=== PATIENT | female | born 1940 | race Caucasian/White ===

== ENCOUNTER 2016-12-08 10:07 | Outpatient (CLI) | payer OTHER ==
--- NOTE | 2016-12-08 11:09 | DIAGNOSTIC IMAGING REPORT ---
PROCEDURE: MG BILATERAL SCREENING W/CAD INDICATION: Screening. Family history breast carcinoma (mother). Personal history of colon, uterine, and head neck cancer. TECHNIQUE: Bilateral CC and MLO digital views. COMPARISON: Compared to 12/04/2015, 12/04/2014, and 12/04/2013. FINDINGS: Computer-aided detection applied. Dense parenchymal pattern with a few dystrophic calcifications. No change. IMPRESSION: 1. Negative mammogram. RESULT CODE: 1- Negative. A. A negative report should not delay biopsy if a dominant or clinically suspicious mass is present. 10-15% of cancers are not identified by x-ray. B. A negative report may reinforce clinical impression. C. Adenosis and dense breasts may obscure an underlying neoplasm. D. False positive reports average 6-10%. E.. A yearly screening mammogram is recommended. A reminder letter will be scheduled.
[2017-01-22] MEDS ORDERED: ALENDRONATE SOD70 MG PO (16:46)
[2017-01-22] MEDS ORDERED: ASPIRIN ADULT L81 M1 PO (16:47)
[2017-01-22] MEDS ORDERED: ATORVASTATIN CA10 MG PO (16:47)
[2017-01-22] MEDS ORDERED: CALCIUM 600 PO (16:48)
[2017-01-22] MEDS ORDERED: MAGNESIUM GLUC250 MG PO (16:48)
== END 2016-12-08 23:00 ==
LOC: MAM SRH 10:07
DX: Z12.31 Encounter for screening mammogram for malignant neoplasm of breast (principal)

== ENCOUNTER 2017-01-28 07:59 | Day surgery (SDC) | payer OTHER ==
[~2017-01-28 07:59] MED LIST: ALENDRONATE SOD70 MG PO; ASPIRIN ADULT L81 M1 PO; ATORVASTATIN CA10 MG PO; CALCIUM 600 PO; MAGNESIUM GLUC250 MG PO
--- NOTE | 2017-01-28 11:08 | Provider's Discharge Care Plan ---
Problem, Goal, Plan Problem List 1. Colon polyps
--- NOTE | 2017-01-28 11:08 | Provider's Discharge Care Plan ---
Problem, Goal, Plan Problem List 1. Colon polyps
--- NOTE | 2017-01-28 11:35 | OPERATIVE REPORT ---
DATE OF SURGERY: 01/28/2017 SURGEON: Jimenez Wills MD PREOPERATIVE DIAGNOSES: 1. History of colon polyps. 2. History of rectal carcinoma POSTOPERATIVE DIAGNOSES: 1. Colon polyps 2. Diverticulosis PROCEDURE PERFORMED: 1. Colonoscopy with snare polypectomy ANESTHESIA: Total IV general. INDICATIONS: The patient is a 76-year-old woman with previous rectal cancer and abdominoperineal resection in the year 1999. She has had numerous polyps over the years. SURGICAL TECHNIQUE: The patient was taken to the endoscopy suite, where total IV general was administered and the patient was left in the supine position. The colonoscope was introduced through the tip of her stoma bag and maneuvered down the colostomy site in the left side of the abdomen. The patient had a moderately tortuous colon. There were several diverticula seen just in the most distal part of her remaining colon. The hepatic flexure was approached, and there was a sessile polyp with a large mucus cap measuring about 8 mm in diameter. This was encircled with a cautery snare tangentially and pulled up off the muscularis. Short pulses of current were used to detach it, and the tissue was recovered through the suction channel. The cecum was reached, and on withdrawal, the entire colon was again inspected. There was another 3 mm polyp found on the downside of a fold more proximally, probably mid transverse colon. This could not be easily pulled up with the snare. Therefore, the tip of the snare was used to fulgurate it directly. The patient left in good condition and no intraoperative complications were encountered.
[2017-01-28 12:10] VITALS: BP 136/73
== END 2017-01-28 12:32 | disposition home or self-care (01) ==
LOC: OR SRH 07:59 → SCU SRH 08:01 → OR SRH 10:00
PROVIDERS: Surgery
PROC: 0DBK8ZX Excision of Ascending Colon, Via Natural or Artificial Opening Endoscopic, Diagnostic (ICD-10-PCS; principal; 2017-01-28 10:00)
DX: Z12.11 Encounter for screening for malignant neoplasm of colon (principal); D12.2 Benign neoplasm of ascending colon; K57.30 Diverticulosis of large intestine without perforation or abscess without bleeding; Z85.048 Personal history of other malignant neoplasm of rectum, rectosigmoid junction, and anus; I10 Essential (primary) hypertension
CPT/HCPCS: 29229; 29240; 50004; 60001; 82900; 83526